=== PATIENT | female | born 2000 | race Caucasian/White ===

== ENCOUNTER 2023-04-05 13:09 | Emergency (ER) | payer OTHER ==
[~2023-04-05] VITALS: Ht 162.6 cm; Wt 90.7 kg
[2023-04-05] MEDS ORDERED: PROCHLORPERAZINE 10 MG/2ML INJ (COMPAZINE) IM ONE (13:45)
[2023-04-05] MEDS ORDERED: diphenhydrAMINE 50 MG/ML INJ (BENADRYL) IM ONE (13:45)
[2023-04-05] MEDS ORDERED: KETOROLAC 30 MG/ML VIAL IM ONE (13:45)
--- NOTE | 2023-04-05 13:53 | ED Headache ---
General Chief Complaint: Head/Cervical Problems Stated Complaint: MIGRAINE Nursing Triage Note: PT AMBULATE TO ROOM 04 WITHOUT DIFFICULTY WITH C/O MIGRAINE STARTING AT NOON YESTERDAY. PT REPORTS NAUSEA, DIZZYNESS, AND BLURRED VISION. Source: patient Exam Limitations: no limitations History of Present Illness Date Seen by Provider: Apr 05, 2023 Time Seen by Provider: 13:30 Initial Comments To ER by private vehicle with reports of a global headache worse than usual since yesterday. She has chronic migraines. She has prochlorperazine at home which she took in addition to Benadryl last night without much relief. She has associated nausea, photosensitivity, sound sensitivity. No fevers or chills. This was slow in onset and got progressively worse over hours. She provides her own history. Timing/Duration: 24 hours, increasing Severity/Quality: constant Associated Symptoms: denies symptoms Allergies and Home Medications Allergies Coded Allergies: No Known Drug Allergies (Unverified , 04/05/23) Patient Home Medication List Home Medication List Reviewed: Yes Review of Systems Review of Systems Constitutional: see HPI Eyes: See HPI Ears, Nose, Mouth, Throat: no symptoms reported Respiratory: see HPI Cardiovascular: no symptoms reported Genitourinary: no symptoms reported Musculoskeletal: no symptoms reported Skin: no symptoms reported Psychiatric/Neurological: Headache Past Cxjvcud-Dealgf-Fvajvc Hx Patient Social History Tobacco Use?: No Smoking Status: Never a Smoker Smokeless Tobacco Frequency: Never a User Use of E-Cig and/or Vaping dev: No Substance use?: No Alcohol Use?: No Pt feels they are or have been: No Physical Exam Vital Signs Vital Signs - First Documented 04/05/23 13:20 Temp 37.1 Pulse 86 Resp 16 B/P (MAP) 134/75 (94) O2 Delivery Room Air Capillary Refill : Less Than 3 Seconds Height, Weight, BMI Height: '" Weight: lbs. oz. kg; 34.00 BMI Method: General Appearance: WD/WN, no apparent distress, other (alert and oriented very pleasant. Carries on conversation appropriately. No distress. Vitals are stable. No neck stiffness. Tympanic membrane's are normal. Conjunctivae are normal.) HEENT: PERRL/EOMI, normal ENT inspection, TMs normal Neck: non-tender, full range of motion, supple; No tender lateral, No tender midline Cardiovascular: regular rate, rhythm, no murmur Respiratory: normal breath sounds, no respiratory distress, no accessory muscle use Gastrointestinal: normal bowel sounds Extremities: normal range of motion, non-tender Psychiatric: alert, oriented x 3 Crainal Nerves: normal hearing, normal speech, PERRL Progress/Results/Core Measures Results/Orders My Orders Orders - MARY MELCHOR APRN Ketorolac Injection (Toradol Injection) (04/05/23 13:45) Prochlorperazine Injection (Compazine In (04/05/23 13:45) Diphenhydramine Injection (Benadryl Inje (04/05/23 13:45) Dexamethasone Injection (Decadron Inje (04/05/23 13:45) Medications Given in ED Current Medications Medications Dose Ordered Sig/Gloria Route Start Time Stop Time Status Last Admin Dose Admin Dexamethasone Sodium Phosphate 10 mg ONCE ONCE IM 04/05/23 13:45 04/05/23 13:46 DC 04/05/23 13:52 10 MG Diphenhydramine HCl 25 mg ONCE ONCE IM 04/05/23 13:45 04/05/23 13:46 DC 04/05/23 13:51 25 MG Ketorolac Tromethamine 30 mg ONCE ONCE IM 04/05/23 13:45 04/05/23 13:46 DC 04/05/23 13:51 30 MG Prochlorperazine Edisylate 10 mg ONCE ONCE IM 04/05/23 13:45 04/05/23 13:46 DC 04/05/23 13:50 10 MG Vital Signs/I&O 04/05/23 13:20 Temp 37.1 Pulse 86 Resp 16 B/P (MAP) 134/75 (94) O2 Delivery Room Air Blood Pressure Mean: 94 Departure Impression Primary Impression: Headache Disposition: 01 HOME, SELF-CARE Condition: Improved Departure-Patient Inst. Decision time for Depature: 13:52 Referrals: NO,LOCAL PHYSICIAN (PCP/Family) Primary Care Physician Patient Instructions: Headache, Adult (DC) Add. Discharge Instructions: 1. Return to ER for any worsening or other concerns. Follow-up with your doctor next week. All discharge instructions reviewed with patient and/or family. Voiced understanding. MARY MELCHOR APRN Apr 05, 2023 13:53
[2023-04-05 14:55] VITALS: BP 123/61
== END 2023-04-05 14:55 | disposition home or self-care (01) ==
LOC: ER 13:13
DX: R51.9 Headache, unspecified (principal); Z86.69 Personal history of other diseases of the nervous system and sense organs
CPT/HCPCS: 99284

== ENCOUNTER 2023-08-07 19:06 | Emergency (ER) | payer OTHER ==
[2023-08-07] MEDS ORDERED: KETOROLAC INJ 30 MG/ML VIAL IVP ONE (19:30)
[2023-08-07] MEDS ORDERED: diphenhydrAMINE INJ 50 MG/ML VIAL IVP ONE (19:30)
[2023-08-07] MEDS ORDERED: PROCHLORPERAZINE INJ 10 MG/2ML VIAL IV ONE (19:30)
[2023-08-07] MEDS ORDERED: NS IV 1000 ML 1,000 ML IV STA (19:30)
--- NOTE | 2023-08-07 19:36 | ED Headache ---
General Stated Complaint: POSS STOKE, MIGRAINE, DIZZINESS Source: patient Exam Limitations: no limitations History of Present Illness Date Seen by Provider: Aug 07, 2023 Time Seen by Provider: 19:32 Initial Comments Patient is a 23-year-old female who presents to the ED with headache, convulsions, difficulty speaking, altered mental status, lightheaded. Patient states she has a history of chronic migraines. She does take qulipta which she takes daily. She does have a neurologist in [place]. She states around 530 yesterday she was at home. She was having tremoring. She was having difficulty coming up with speech. She states the symptoms lasted for a few hours. After that she was having continued tremoring felt confused lightheaded and continued headache. She reports daily headaches. Increase head pain yesterday located occipital head migrates throughout the head and described as pressure and intermittent sharp pain. She reports nausea without vomiting. Photophobia and phonophobia. She reports generalized weakness. She denies any facial droop, and distal numbness and tingling. Denies chest pain or shortness of breath. She states today's head pain feels very similar to her previous migraines. She was seen at [facility] was recommended come to ED for rule out stroke. She is on control but denies of any recent travels or surgeries, leg swelling or pain. She denies fever, chills, vomiting, diarrhea, chest pain, cough or shortness of breath. She does report some blurred vision dark spots in her vision but that has been ongoing for several months Allergies and Home Medications Allergies Coded Allergies: No Known Drug Allergies (Unverified , 04/05/23) Patient Home Medication List Home Medication List Reviewed: Yes Review of Systems Review of Systems Constitutional: No chills, No diaphoresis, No fever, No malaise, No weakness Eyes: Denies Blurred Vision, Denies Drainage, Denies Decreased Acuity Ears, Nose, Mouth, Throat: denies ear pain, denies ear discharge Respiratory: No dyspnea on exertion Cardiovascular: No chest pain, No edema Gastrointestinal: No abdominal pain, No diarrhea; nausea; No vomiting Genitourinary: No decreased output, No discharge Musculoskeletal: No back pain, No joint pain Skin: No change in color Psychiatric/Neurological: Headache; Denies Numbness, Denies Paresthesia; Weakness, Other (Tremoring, convulsions, difficulty speaking) All Other Systems Reviewed Negative Unless Noted: Yes Physical Exam Vital Signs Vital Signs - First Documented 08/07/23 19:20 Temp 37.1 Pulse 109 Resp 20 B/P (MAP) 142/98 (113) Pulse Ox 100 O2 Delivery Room Air Capillary Refill : Height, Weight, BMI Height: '" Weight: lbs. oz. kg; 34.00 BMI Method: General Appearance: WD/WN, no apparent distress HEENT: PERRL/EOMI, normal ENT inspection, TMs normal, pharynx normal Neck: non-tender, full range of motion, supple Cardiovascular: regular rate, rhythm, no edema, no gallop, no JVD Respiratory: chest non-tender, lungs clear, normal breath sounds Gastrointestinal: normal bowel sounds, non tender, soft Back: normal inspection, no CVA tenderness, no vertebral tenderness Extremities: normal range of motion, non-tender, normal inspection, no pedal edema Crainal Nerves: normal hearing, normal speech, PERRL Coordination/Gait: normal finger to nose, normal gait Motor/Sensory: no motor deficit, no sensory deficit, no pronator drift Skin: normal color, warm/dry Progress/Results/Core Measures Results/Orders Lab Results Laboratory Tests Test 08/07/23 19:30 Range/Units White Blood Count 7.7 4.3-11.0 10^3/uL Red Blood Count 4.43 3.80-5.11 10^6/uL Hemoglobin 13.8 11.5-16.0 g/dL Hematocrit 41 35-52 % Mean Corpuscular Volume 93 80-99 fL Mean Corpuscular Hemoglobin 31 25-34 pg Mean Corpuscular Hemoglobin Concent 34 32-36 g/dL Red Cell Distribution Width 12.7 10.0-14.5 % Platelet Count 389 130-400 10^3/uL Mean Platelet Volume 9.2 9.0-12.2 fL Immature Granulocyte % (Auto) 0 % Neutrophils (%) (Auto) 57 42-75 % Lymphocytes (%) (Auto) 34 12-44 % Monocytes (%) (Auto) 6 0-12 % Eosinophils (%) (Auto) 2 0-10 % Basophils (%) (Auto) 1 0-10 % Neutrophils # (Auto) 4.4 1.8-7.8 10^3/uL Lymphocytes # (Auto) 2.6 1.0-4.0 10^3/uL Monocytes # (Auto) 0.5 0.0-1.0 10^3/uL Eosinophils # (Auto) 0.2 0.0-0.3 10^3/uL Basophils # (Auto) 0.1 0.0-0.1 10^3/uL Immature Granulocyte # (Auto) 0.0 0.0-0.1 10^3/uL Prothrombin Time 12.2 12.2-14.7 SEC INR Comment 0.9 0.8-1.4 Activated Partial Thromboplast Time 28 24-35 SEC Sodium Level 142 135-145 MMOL/L Potassium Level 3.9 3.6-5.0 MMOL/L Chloride Level 109 H 98-107 MMOL/L Carbon Dioxide Level 22 21-32 MMOL/L Anion Gap 11 5-14 MMOL/L Blood Urea Nitrogen 12 7-18 MG/DL Creatinine 0.74 0.60-1.30 MG/DL Estimat Glomerular Filtration Rate 118 BUN/Creatinine Ratio 16 Glucose Level 82 70-105 MG/DL Calcium Level 9.5 8.5-10.1 MG/DL Corrected Calcium 9.2 8.5-10.1 MG/DL Total Bilirubin 0.2 0.1-1.0 MG/DL Aspartate Amino Transf (AST/SGOT) 16 5-34 U/L Alanine Aminotransferase (ALT/SGPT) 19 0-55 U/L Alkaline Phosphatase 64 40-136 U/L Total Protein 7.7 6.4-8.2 GM/DL Albumin 4.4 3.2-4.5 GM/DL My Orders Orders - ANTONIO TONEY Ct Head Wo (08/07/23 19:30) Cbc And Automated Diff (08/07/23 19:30) Comprehensive Metabolic Panel (08/07/23 19:30) Partial Thromboplastin Time (08/07/23:30) Protime With Inr (08/07/23:30) Ketorolac Injection (Ketorolac Injection (08/07/23 19:30) Prochlorperazine Injection (Prochlorpera (08/07/23 19:30) Diphenhydramine Injection (Diphenhydram (08/07/23 19:30) Ns Iv 1000 Ml (Ns Iv 1000 Ml) (08/07/23 19:30) Medications Given in ED Vital Signs/I&O 08/07/23 08/07/23 19:20 21:02 Temp 37.1 Pulse 109 89 Resp 20 20 B/P (MAP) 142/98 (113) 116/47 Pulse Ox 100 O2 Delivery Room Air Departure Communication (PCP) Reviewed previous ER visits, H&P, lab test. Patient presents to ED for headache, change in mental status difficulty speaking, tremoring. She was seen at [facility] concern for potential stroke. Symptoms started yesterday evening around 1030. She is not a candidate for tPA. Low risk factors for stroke. On arrival alert and orient x4. GCS of 15. NIH is 0. There is no active tremoring. Able to talk in complete sentences. History of migraines. She is on chronic medication qulipta. Denies worst headache of her life.'s. Patient has no m eningeal signs. No flulike symptoms. Patient states she has similar type head pain in the past. She has had had tremoring for several months with her headache. History of difficulty coming up with words in the past. Differential diagnosis migraine, atypical migraine, stroke. Low risk factor for stroke. Did obtain a CT scan head which was unremarkable. Migraine cocktail with resolution of her symptoms. Generalized lab work was unremarkable. She had no evidence of strokelike symptoms during her visit. Low suspicion for stroke. Suspect this is more of a atypical type migraine. She is feeling much better at this time would like to be discharged. Discussed follow-up your neurologist for further evaluation. May need to consider other alternatives for your migraines. Follow-up your PCP in 2 to 3 days for reevaluation. If any worsening symptoms return back to ED. continue with your migraine medication Impression Primary Impression: Migraine Disposition: HOME, SELF-CARE Condition: Stable Departure-Patient Inst. Decision time for Depature: 20:57 Referrals: [facility] [place],LOCAL PHYSICIAN (PCP) Primary Care Physician Patient Instructions: Migraines (DC) ANTONIO TONEY Aug 07, 2023 19:36
[2023-08-07 19:43] LABS: BASOPHILS # (AUTO) 0.1 10^3/uL (0.0-0.1); BASOPHILS % (AUTO) 1 % (0-10); EOSINOPHILS # (AUTO) 0.2 10^3/uL (0.0-0.3); EOSINOPHILS % (AUTO) 2 % (0-10); HEMATOCRIT 41 % (35-52); HEMOGLOBIN 13.8 g/dL (11.5-16.0); LYMPHOCYTES # (AUTO) 2.6 10^3/uL (1.0-4.0); LYMPHOCYTES % (AUTO) 34 % (12-44); MEAN CORPUSCULAR HEMOGLOBIN 31 pg (25-34); MEAN CORPUSCULAR HGB CONC 34 g/dL (32-36); MEAN CORPUSCULAR VOLUME 93 fL (80-99); MEAN PLATELET VOLUME 9.2 fL (9.0-12.2); MONOCYTES # (AUTO) 0.5 10^3/uL (0.0-1.0); MONOCYTES % (AUTO) 6 % (0-12); NEUTROPHILS # (AUTO) 4.4 10^3/uL (1.8-7.8); NEUTROPHILS % (AUTO) 57 % (42-75); PLATELET COUNT 389 10^3/uL (130-400); WHITE BLOOD COUNT 7.7 10^3/uL (4.3-11.0)
[2023-08-07 19:50] LABS: ALBUMIN 4.4 GM/DL (3.2-4.5); INR 0.9 (0.8-1.4); PROTHROMBIN TIME PATIENT 12.2 SEC (12.2-14.7)
[2023-08-07 19:51] LABS: CALCIUM 9.5 MG/DL (8.5-10.1)
[2023-08-07 19:52] LABS: TOTAL PROTEIN 7.7 GM/DL (6.4-8.2)
[2023-08-07 19:54] LABS: BILIRUBIN,TOTAL 0.2 MG/DL (0.1-1.0)
[2023-08-07 19:56] LABS: CREATININE SERUM 0.74 MG/DL (0.60-1.30)
[2023-08-07 20:10] LABS: POTASSIUM 3.9 MMOL/L (3.6-5.0)
--- NOTE | 2023-08-07 20:33 | Diagnostic Imaging Report ---
PROCEDURE: CT head without contrast. TECHNIQUE: Multiple contiguous axial images were obtained through the brain without the use of intravenous contrast. Auto Exposure Controls were utilized during the CT exam to meet ALARA standards for radiation dose reduction. INDICATION: Headache and non-verbal for 2 hours. FINDINGS: The ventricles and sulci are within normal limits for size. There is no intracranial hemorrhage identified. There is no abnormal mass effect or shift of midline structures. Fluid is present within an anterior left ethmoid air cell. IMPRESSION: Unremarkable CT of the head. Dictated by: Dictated on workstation # [id number]
[2023-08-07 21:02] VITALS: BP 116/47
== END 2023-08-07 21:03 | disposition home or self-care (01) ==
LOC: EDUNIT# 19:06 → ER 19:09
DX: G43.909 Migraine, unspecified, not intractable, without status migrainosus (principal); Z79.899 Other long term (current) drug therapy
CPT/HCPCS: 36415; 70450; 80053; 85025; 85610; 85730; 96372

== ENCOUNTER → 2023-09-01 | Outpatient (CLI) | payer OTHER ==
--- NOTE | 2023-09-01 08:29 | Diagnostic Imaging Report ---
Clinical Indication: Patient with migraine headaches. Exam: MRI of the brain performed without IV contrast. Sequences include axial DWI, ADC map, axial T1, axial T2, axial FLAIR, axial gradient echo, and sagittal T1. Comparison: Head CT without contrast dated 08/07/2023.. Findings: There is no evidence of acute cerebral infarct, intracranial hemorrhage, or gross mass effect. There is a nonspecific 5 mm focal area of increased T2 signal involving the subcortical high parasagittal posterior left frontal lobe region. The brain parenchymal volume appears appropriate for patient's age. There is normal walter-white matter distinction. There is no significant midline shift or herniation. The visualized [place] vascular structures are unremarkable. The pituitary gland, sella, and suprasellar regions are unremarkable as visualized. There is no evidence of hydrocephalus. The basal cisterns are unremarkable. The skull, extracranial soft tissue, and orbits are unremarkable. There is minimal mucosal thickening involving the sphenoid sinus. There is a minimal amount of fluid involving the left mastoid air cells. IMPRESSION: 1: There is a focal nonspecific area of increased T2 signal involving the parasagittal high posterior left frontal lobe. 2: Otherwise, unremarkable MRI of the brain. 3: There is minimal sphenoid sinus disease and minimal fluid in the left mastoid air cells. Dictated by: Dictated on workstation # [id number]
== END ==
LOC: RAD 08:00
PROVIDERS: ATTEND Nurse Practitioner Family
DX: G43.909 Migraine, unspecified, not intractable, without status migrainosus (principal)
CPT/HCPCS: 70551